=== PATIENT | male | born 1980 | race Caucasian/White ===

== ENCOUNTER 2019-06-15 12:32 | Day surgery (SDC) | payer BC, OTHER ==
[2019-06-13 16:48] VITALS: BMI 29.0
[2019-06-15] MEDS ORDERED: MIDAZOLAM HCL 2 MG/2 ML SINGLE DOSE VIAL ONE (15:49)
[2019-06-15] MEDS ORDERED: PROPOFOL 20 ML ONE ×2 (15:49)
[2019-06-15] MEDS ORDERED: SUCCINYLCHOLINE CHLORIDE 200 MG/10 ML SYRINGE ONE (15:50)
[2019-06-15] MEDS ORDERED: LIDOCAINE HCL 2% JELLY (5 ML/TUBE) ONE (15:50)
[2019-06-15] MEDS ORDERED: KETOROLAC TROMETHAMINE 30 MG/1 ML VIAL ONE (16:05)
[2019-06-15] MEDS ORDERED: DEXAMETHASONE SOD PHOSPHATE 4 MG/1 ML VIAL ONE (16:05)
[2019-06-15] MEDS ORDERED: ONDANSETRON 4 MG/2 ML VIAL ONE (16:05)
[2019-06-15] MEDS ORDERED: LIDOCAINE HCL/PF 2% SDV 5ML VIAL ONE (16:05)
[2019-06-15] MEDS ORDERED: ceFAZolin SODIUM 1 GM VIAL ONE (16:05)
[2019-06-15] MEDS ORDERED: ePHEDrine SULFATE 50 MG/1 ML AMPULE ONE ×2 (16:29)
[2019-06-15] MEDS ORDERED: PROMETHAZINE HCL 25 MG/1 ML VIAL IVPUSH PRN (17:14)
[2019-06-15] MEDS ORDERED: ONDANSETRON 4 MG/2 ML VIAL IVPUSH PRN (17:14)
[2019-06-15] MEDS ORDERED: oxyCODONE HCL 5 MG TABLET PO PRN ×2 (17:14)
[2019-06-15 18:24] VITALS: TEMP 97.7
[2019-06-15 18:29] VITALS: BP 125/80; PULSE 84
--- NOTE | 2019-06-16 07:05 | OP ---
DATE OF OPERATION: 06/15/2019 PREOPERATIVE DIAGNOSIS: Ulnar nerve compression at left elbow. POSTOPERATIVE DIAGNOSIS: Ulnar nerve compression, left elbow, epineurium. PROCEDURE PERFORMED: Left ulnar nerve decompression with epineurolysis. SURGEON: Triston Kelly MD TOP TILE DECORATOR: Eric Naranjo. ANESTHESIA: Alvaro Dominguez MD, general anesthesia. DESCRIPTION OF PROCEDURE: The procedure consisted of the patient being brought in the operating room and gently transferred from the stretcher to the OR table with all bony prominences well padded. The left arm was prepared and draped in a sterile fashion. Patient was given intravenous antibiotics and copious irrigation throughout the procedure to minimize risk for infection. A complete risk, benefit, alternative discussion was conducted with the patient, which was inclusive of, but not limited to, infection, bleeding, , paralysis, increased pain, need for repeat surgery. Patient asked questions, understood the procedure, and desired to proceed with surgical treatment. Following sterile preparation and draping of the left arm, an appropriate time-out was conducted, which was inclusive of, but not limited to, site of surgery, type of surgery, surgeon, and anesthesiologist. Following sterile preparation and draping of the left arm, the arm was exsanguinated using Esmarch bandage. A curvilinear incision of approximately 1/4 inches was incised between the medial epicondyle and the olecranon process. Great care was taken to protect neurovascular structures. Hemostasis was maintained using bipolar cautery. The soft tissues were dissected until the ulnar nerve was visualized, and there was noted to be a constricted band around the ulnar nerve. This was released. Good blood flow was seen to the ulnar nerve with the vein, which was absent before, visualized after decompression proximally and distally. It was ensured that good space was available for the ulnar nerve. There was noted to be thickened epineurium, and epineurolysis was also performed. The wounds were then copiously irrigated with serosanguinous irrigant. The wounds were then closed with 4-0 undyed Vicryl followed by Steri-Strips, Xeroform, 4 x 4's, Combine, sterile Webril, Connor bandages, and a sling. The patient was then gentle awoken from anesthesia without incident and transferred from the operating room to the recovery room in excellent condition. Tourniquet was deflated after approximately 25 minutes of tourniquet time. There were no intraoperative complications. Malina [id number]
== END 2019-06-15 18:25 | disposition home or self-care (01) ==
LOC: FASU 12:32
PROVIDERS: ATTEND Orthopaedic Surgery
PROC: 01N40ZZ Release Ulnar Nerve, Open Approach (ICD-10-PCS; principal; 2019-06-15 16:18)
DX: G56.22 Lesion of ulnar nerve, left upper limb (principal); M25.822 Other specified joint disorders, left elbow
CPT/HCPCS: 94760

== ENCOUNTER 2020-04-28 11:25 | Day surgery (SDC) | payer OTHER ==
[2020-04-16 16:19] VITALS: BMI 29.2
[2020-04-28] MEDS ORDERED: MIDAZOLAM HCL 2 MG/2 ML SINGLE DOSE VIAL ONE ×2 (12:48→12:49)
[2020-04-28] MEDS ORDERED: LIDOCAINE 1% P/F 10 MG/ML VIAL ONE (12:49)
[2020-04-28] MEDS ORDERED: ROPIVACAINE HCL 0.5% 30ML VIAL ONE (12:49)
[2020-04-28] MEDS ORDERED: BUPIVACAINE HCL/PF 0.25% (2.5MG/ML) 10 ML VIAL ONE (13:27)
[2020-04-28] MEDS ORDERED: ONDANSETRON 4 MG/2 ML VIAL IVPUSH PRN (13:30)
[2020-04-28] MEDS ORDERED: oxyCODONE HCL 5 MG TABLET PO PRN (13:30)
[2020-04-28] MEDS ORDERED: LACTATED RINGERS SOLUTION 1,000 ML IV SCH (13:30)
[2020-04-28] MEDS ORDERED: PROPOFOL 20 ML ONE ×3 (13:34→14:11)
[2020-04-28] MEDS ORDERED: LIDOCAINE HCL 1%, 10 MG/ML (20ML VIAL) ONE (13:37)
[2020-04-28] MEDS ORDERED: ceFAZolin SODIUM 1 GM VIAL ONE (13:41)
[2020-04-28] MEDS ORDERED: LIDOCAINE HCL 1%, 10 MG/ML (50 mL VIAL) INF ONE (14:22)
[2020-04-28] MEDS ORDERED: GUM MASTIC/STORAX/MSAL/ALCOHOL 1 DRP DROPSBTL MC ONE (14:36)
[2020-04-28] MEDS ORDERED: KETOROLAC TROMETHAMINE 30 MG/1 ML VIAL ONE (14:38)
[2020-04-28 16:30] VITALS: BP 111/73; PULSE 74; TEMP 98
--- NOTE | 2020-04-29 11:13 | OP ---
DATE OF OPERATION: 04/28/2020 PREOPERATIVE DIAGNOSIS: Stiff left elbow with tear of left elbow triceps tendon. POSTOPERATIVE DIAGNOSES: 1. Stiffness of the left elbow. 2. Muscle scarring of the left triceps muscle. 3. Tendon rupture to the triceps to the left elbow. PROCEDURE PERFORMED: 1. Gentle manipulation of the left elbow under anesthesia. 2. Tenolysis of the left triceps muscle and tendon due to scar tissue surrounding the tear. 3. Triceps tendon repair using drilling and placement of bony anchor to the olecranon. SURGEON: Manolo Kelly MD DESIGN SPECIALIST: SANTIAGO Calhoun ANESTHESIOLOGIST: Giovanny Gonsales, REF-DO TYPE OF ANESTHESIA: Regional block. PROCEDURE: The procedure consisted of the patient being brought into the operating room and gently transferred from the stretcher to the OR table with all bony prominences well padded. The patient was placed in the prone position. The anesthesiologist had previously placed a block to the left arm. A tourniquet was applied and tourniquet inflated to 250 mmHg. Prior to placement of the tourniquet and raising of the tourniquet, a gentle manipulation under anesthesia was performed. Initial range was a 10-degree block to extension with 75 degrees of flexion. Following gentle manipulation, full extension was obtained with 120 degrees of flexion. A curvilinear incision was placed following the sterile preparation, draping and the placement of the patient in the prone position. The curvilinear incision was approximately 2 inches in length. The incision was carried overlying a palpable defect in the triceps tendon to the level of the olecranon. The soft tissues were gently dissected through to the level of the triceps tendon. Great care was taken throughout the procedure to protect the neurovascular structures to the region, in particular the ulnar nerve. The olecranon was visualized. A visible defect was seen in the triceps. There were noted to be adhesions of the triceps to the soft tissues. These were gently released and the adhesions were released and a tenolysis was performed to the tendon and the soft tissues. The tendon was visualized. Following this, a bony anchor was placed through a drill hole of appropriate diameter in the olecranon. The anchor was placed with good retention in the olecranon with good pull-out strength on testing. A modified ilana stitch was then placed through the triceps tendon proximal to the rupture. Two needles were used to allow placement of the needles at the simultaneous time for each pass as in a weaving X fashion with each needle placed with the other needle in position to avoid cutting of the suture which was a FiberWire suture with the needle tip. Four passes were placed through the triceps tendon proximal to the rupture. This was then pulled into position, reapproximating the tendon to the rupture site and the olecranon attachment void. Following this, the suture was pulled through to the lateral aspect and a No. 4 Vicryl suture was used to embed the nonabsorbable suture in the soft tissues. The wounds were copiously irrigated and a plastic surgical closure was performed using a subcuticular stitch followed by a running 4-0 Monocryl suture which was a deep buried suture. This was followed by Steri-Strips, Xeroform, 4 x 4's, sterile Webril and Connor bandages. It should be noted that copiously irrigation was performed prior to closure. Tourniquet had been deflated after approximately 35 minutes of tourniquet time. Patient was then gently awoken from anesthesia without incident and transferred from the operating room to the recovery room in excellent condition. MANOLO KELLY M.D. LUIS [id number] [facility]
== END 2020-04-28 16:30 | disposition home or self-care (01) ==
LOC: FASU 11:25
PROVIDERS: ATTEND Orthopaedic Surgery
PROC: 0LN40ZZ Release Left Upper Arm Tendon, Open Approach (ICD-10-PCS; 2020-04-28)
PROC: 0LQ40ZZ Repair Left Upper Arm Tendon, Open Approach (ICD-10-PCS; principal; 2020-04-28 13:53)
DX: M25.622 Stiffness of left elbow, not elsewhere classified (principal); M66.822 Spontaneous rupture of other tendons, left upper arm; M62.89 Other specified disorders of muscle
CPT/HCPCS: 94760

== ENCOUNTER 2024-07-12 20:31 | Emergency (ER) | payer BC, OTHER ==
[2024-07-12 20:46] VITALS: BP 137/91; PULSE 68; RESP 16; TEMP 98.1; BMI 29.2
[2024-07-12] MEDS ORDERED: morphine SULFATE 4 MG/ML VIAL ONE (20:54)
[2024-07-12] MEDS: SODIUM CHLORIDE 1,000 ML IV ONE (20:59)
[2024-07-12] MEDS: morphine CARPU-JECT 4 MG/1 ML DISP.SYRIN IVPUSH ONE (20:59)
[2024-07-12 21:10] LABS: HEMATOCRIT 51.4 % (35.4-49); HEMOGLOBIN 16.3 G/dL (11.7-16.9); MCH 27.6 pg (25.7-33.7); MCHC 31.7 g/dl (32.0-35.9); MEAN PLT VOLUME 8.8 fl (7.5-11.1); PLATELET COUNT 200.9 10^3/uL (134-434); RBC 5.91 10^6/uL (4.00-5.60); RDW 16.1 % (11.9-15.9); WHITE BLOOD COUNT 6.7 10^3/uL (4.0-10.8)
[2024-07-12 21:28] LABS: ALBUMIN 4.3 g/dl (3.4-5.0); BILIRUBIN,TOTAL 0.5 mg/dl (0.2-1); CALCIUM 9.3 mg/dl (8.5-10.1); CREATININE 1.3 mg/dl (0.6-1.3); POTASSIUM 3.5 mmol/L (3.5-5.1); TOT PROT 6.8 g/dl (6.4-8.2)
== END 2024-07-12 22:54 | disposition home or self-care (01) ==
LOC: FER 20:31
PROC: 3E033NZ Introduction of Analgesics, Hypnotics, Sedatives into Peripheral Vein, Percutaneous Approach (ICD-10-PCS; principal; 2024-07-12)
PROC: 3E0337Z Introduction of Electrolytic and Water Balance Substance into Peripheral Vein, Percutaneous Approach (ICD-10-PCS; 2024-07-12)
DX: R10.32 Left lower quadrant pain (principal); K40.90 Unilateral inguinal hernia, without obstruction or gangrene, not specified as recurrent
CPT/HCPCS: 36415; 74177-TC; 80053; 81003; 81015; 85027; 99285-25; Q9967